=== PATIENT | female | born 1980 | race Caucasian/White ===

== ENCOUNTER 2017-06-16 17:05 | Emergency (ER) | payer OTHER, SELFPAY | END 2017-06-16 17:55 | disposition home or self-care (01) | LOC: NAV ERS 17:05 | DX: H10.9 Unspecified conjunctivitis (principal); F17.210 Nicotine dependence, cigarettes, uncomplicated | CPT/HCPCS: 99282 ==

== ENCOUNTER → 2017-12-02 | Emergency (ER) | payer SELFPAY ==
[~2017-12-02] MED LIST: methylPREDNISolone Acetate 40 mg/ml Vial ONE
== END ==
LOC: NAV ERS 22:01
DX: T78.40XA Allergy, unspecified, initial encounter (principal); F17.210 Nicotine dependence, cigarettes, uncomplicated
CPT/HCPCS: 96372; J1030; J2920

== ENCOUNTER 2018-06-23 07:24 | Emergency (ER) | payer SELFPAY | END 2018-06-23 08:33 | disposition home or self-care (01) | LOC: NAV ERS 07:24 | DX: J02.9 Acute pharyngitis, unspecified (principal); F17.210 Nicotine dependence, cigarettes, uncomplicated | CPT/HCPCS: 87081; 87430; 99283 ==

== ENCOUNTER 2018-11-17 21:00 | Emergency (ER) | payer SELFPAY ==
[2018-11-17 21:50] LABS: #Basophils 0.1 thou/uL (0.0-0.2); #Eosinphils 0.3 thou/uL (0.0-0.7); #Lymphocytes 2.2 thou/uL (1.20-3.40); #Monocytes 0.7 thou/uL (0.11-0.59); #Neutrophils 5.1 thou/uL (1.40-6.50); %Basophils 0.8 % (0.0-1.0); %Eosinophils 3.9 % (0.0-10.0); %Lymphocytes 26.8 % (21.0-51.0); %Monocytes 7.8 % (0.0-10.0); %Neutrophils 60.7 % (42.0-75.0); Hemoglobin 15.1 g/dL (12.0-16.0); Mean Corpuscular HGB CONC 30.9 g/dL (32.0-36.0); Mean Corpuscular Hemoglobin 29.8 pg (27.0-31.0); Mean Corpuscular Volume 96.3 fL (78.0-98.0); Mean Platelet Volume 6.8 fL (7.4-10.4); Platelet Count 237 thou/uL (130-400); RBC Distribution Width 12.4 % (11.5-14.5); Red Blood Cell (RBC) Count 5.06 mill/uL (4.20-5.40); White Blood Cell (WBC) Count 8.3 thou/uL (4.8-10.8)
[2018-11-17 21:54] LABS: Bilirubin Negative (Negative); Blood, Urine Large (Negative); Glucose, Urine (Dipstick) Negative (Negative); Leukocyte Trace (Negative); Nitrite Negative (Negative); Protein, Urine (Dipstick) Trace mg/dL (Neg-Trace); Specific Gravity, Urine 1.025 (1.005-1.030); Urobilinogen 0.2 mg/dL (0.2-1.0)
[2018-11-17 22:05] LABS: Cocaine Metabolite Screen Not Detected (NotDetected); Methamphetamine Detected (NotDetected); Phencyclidine (PCP) Not Detected (NotDetected); THC/Cannabinoid Screen Detected (NotDetected)
[2018-11-17 22:06] LABS: Amphetamine Detected (NotDetected); Barbiturates Screen Not Detected (NotDetected); Benzodiazepine Screen Detected (NotDetected); Medtox Control Line Valid? VALID (VALID); Methadone Not Detected (NotDetected); Opiate Screen Not Detected (NotDetected); Oxycodone Screen Not Detected (NotDetected); Tricyclic Screen Not Detected (NotDetected)
[2018-11-17 22:07] LABS: Clarity Hazy (Clear)
[2018-11-17 22:08] LABS: Bacteria/HPF 2+ HPF (None Seen); RBC/HPF 0-3 HPF (0-3); Squamous Epithelial 0-3 HPF (0-3)
[2018-11-17 22:24] LABS: ALT (SGPT) 18 U/L (8-55); AST (SGOT) 27 U/L (5-34); Alkaline Phosphatase 81 U/L (40-150); Anion Gap 12 mmol/L (10-20); BUN (Urea Nitrogen) 11 mg/dL (7.0-18.7); Bilirubin, Total 0.2 mg/dL (0.2-1.2); Calc. Creatinine Clearance 0 mL/min (70-130); Calcium 9.2 mg/dL (7.8-10.44); Carbon Dioxide 26 mmol/L (22-29); Chloride 104 mmol/L (98-107); Estimated GFR-MDRD 78; Globulin 3.3 g/dL (2.4-3.5); Glucose 99 mg/dL (70-105); Protein, Total 7.3 g/dL (6.0-8.3); Sodium 138 mmol/L (136-145)
[2018-11-17 22:39] LABS: Wet Prep Clue Cells Clue Cells PRESENT (None Seen); Wet Prep Trichomonas Trichomonas Absent (None Seen)
[2018-11-17 23:11] LABS: Pregnancy Test - Urine (BHCG) Negative (Negative)
[2018-11-17 23:12] LABS: Pregu Control Background? CLEAR/WHITE (CLR/WHITE); Pregu Control Bar Appear? YES (CONTROL BAR); Specific Gravity 1.025 (1.002-1.036)
[2018-11-18 21:10] LABS: Chlamydia by PCR Not Detected (NotDetected); GC by PCR Not Detected (NotDetected)
== END 2018-11-17 23:47 | disposition home or self-care (01) ==
LOC: NAV ERS 21:00
DX: N76.0 Acute vaginitis (principal); N93.9 Abnormal uterine and vaginal bleeding, unspecified; A60.00 Herpesviral infection of urogenital system, unspecified; F17.210 Nicotine dependence, cigarettes, uncomplicated; N30.90 Cystitis, unspecified without hematuria; F41.0 Panic disorder [episodic paroxysmal anxiety]
CPT/HCPCS: 36415; 80053; 80306; 81003; 81015; 81025; 85025; 87210; 87252; 87491; 87591; 99284

== ENCOUNTER 2023-04-19 19:24 | Emergency (ER) | payer OTHER, SELFPAY ==
[2023-04-19] MEDS ORDERED: Amoxicillin/Potassium Clav 875 MG TAB ONE (19:50)
== END 2023-04-19 19:54 | disposition home or self-care (01) ==
LOC: NAV ERS 19:24
DX: K04.7 Periapical abscess without sinus (principal); F17.210 Nicotine dependence, cigarettes, uncomplicated
CPT/HCPCS: 41800

== ENCOUNTER 2024-08-14 13:50 | Emergency (ER) | payer OTHER ==
[2024-08-14] MEDS ORDERED: predniSONE 20 MG TAB ONE (14:10)
== END 2024-08-14 14:21 | disposition home or self-care (01) ==
LOC: NAV ERS 13:50
DX: L25.0 Unspecified contact dermatitis due to cosmetics (principal); F17.210 Nicotine dependence, cigarettes, uncomplicated
CPT/HCPCS: 99282; J7512